=== PATIENT | male | born 1970 | race African-American/Black ===

== ENCOUNTER 2019-10-15 16:20 | Emergency (ER) | payer OTHER, SELFPAY ==
[2019-10-15] VITALS (8 sets, daily range): BP systolic 161–184; BP diastolic 114–124; PULSE 70–97; RESP 16–20; TEMP 36.7; O2SAT 94–98
--- NOTE | 2019-10-15 17:18 | PC.NURSE ---
Wilma calhoun (x2 large) and afrin to bedside per Mitch, [employer] request.
--- NOTE | 2019-10-15 17:47 | PC.NURSE ---
Pt up to bathroom, note the nasal tampon is saturated. States thinks that he can feel blood trickling down the back of his throat
--- NOTE | 2019-10-15 18:01 | ED.EPISTAXIS ---
HPI - Epistaxis General Chief complaint: Epistaxis <FARZANA Aranda BC - Last Filed: 10/15/19 20:11> Stated complaint: nose bleed <FARZANA Aranda BC - Last Filed: 10/15/19 20:11> Time Seen by Provider: 10/15/19 16:30 <FARZANA Aranda BC - Last Filed: 10/15/19 20:11> Source: patient <Naif JakMarco AntonioFARZANA Zaptaa BC - Last Filed: 10/15/19 20:11> Mode of arrival: ambulatory <FRAZANA Aranda BC - Last Filed: 10/15/19 20:11> Limitations: no limitations <FARZANA Aranda BC - Last Filed: 10/15/19 20:11> History of Present Illness HPI Narrative: Patient presents for evaluation of right-sided epistaxis. He indicates he first experienced symptoms early this morning around 0100. He applied pressure and was able to achieve hemostasis. Today, around 1300, he was mowing the lawn and when he came into his home he attempted to clear his throat. He noted small amount of hemoptysis, followed by right sided nosebleed. He has been unable to control the bleeding at home. He is on 81 mg ASA at home but denies any other blood thinners. PMH pertinent for hypertension, hyperlipidemia, GERD. <FARZANA Aranda BC - Last Filed: 10/15/19 20:11> Related Data Home medications: Home Medications Medication Instructions Recorded Confirmed Adult Low Dose Aspirin 10/15/19 amlodipine 10/15/19 atorvastatin 10/15/19 ranitidine HCl 10/15/19 <FARZANA Aranda BC - Last Filed: 10/15/19 20:11> Allergies/adverse reactions: Allergies Allergy/AdvReac Type Severity Reaction Status Date / Time No Known Allergies Allergy Verified 10/15/19 16:38 <FARZANA Aranda BC - Last Filed: 10/15/19 20:11> Review of Systems Review of Systems: Narrative: CONSTITUTIONAL: Denies fever, chills, or sweats. EYES: Denies visual changes, redness, or discharge. ENT: Reports right sided nosebleed. Denies rhinorrhea, congestion, sore throat, or otalgia. CARDIOVASCULAR: Denies chest pain, palpitations, or edema. RESPIRATORY: Denies cough or dyspnea. GASTROINTESTINAL: Denies abdominal pain, nausea, vomiting, or diarrhea. GENITOURINARY: Denies dysuria or hematuria. SKIN: Denies rash or itching. MUSCULOSKELETAL: Denies back pain, joint pain, or myalgia. NEUROLOGIC: Denies headache, numbness, dizziness, or weakness. PSYCHIATRIC: Denies anxiety or depression. <FARZANA Aranda BC - Last Filed: 10/15/19 20:11> PMFSH Past Medical History Medical History: Medical History (Updated 10/15/19 @ 18:38 by Genesis Vasquez MD) GERD (gastroesophageal reflux disease) Hyperlipidemia Hypertension <FARZANA Aranda BC - Last Filed: 10/15/19 20:11> Surgical History Surgical History: Surgical History No pertinent past surgical history <FARZANA Aranda BC - Last Filed: 10/15/19 20:11> Social History Social History: Social History (Updated 10/15/19 @ 18:05 by FARZANA Aranda BC) Alcohol intake: current Substance use: never Living arrangements: with family Gender identity (if verbalized by the patient): Male <FARZANA Aranda BC - Last Filed: 10/15/19 20:11> Exam Narrative: Exam Narrative: GENERAL: Well-appearing, well-nourished, and in no acute distress. HEAD: Normocephalic, atraumatic. EYES: PERRLA and EOMI. ENT: Nares clear, no rhinorrhea. Moderate amount of active sanguinous drainage from right nare. Pt is holding kleenex in right nare in attempts to achieve hemostasis. Mucous membranes moist. Oropharynx without tonsillar hypertrophy exudate or other lesions. Bilateral TMs pearly edwards nonbulging NECK: Supple. No adenopathy or masses. No carotid bruits or JVD CHEST: Clear to auscultation. No respiratory distress. No wheezes rales or rhonchi HEART: Regular rate and rhythm. No murmur heard. Normal peripheral pulses. ABDOMEN: Soft, nontend
--- NOTE | 2019-10-15 18:25 | PC.NURSE ---
Pt continues to trickle out of right nare past packing and continues to clear throat. Dr. Vasquez at bedside discussing plan of care.
[2019-10-15] MEDS: LORAZEPAM INJ 2 MG/ML VIAL 0.5 MG IV PUSH (18:39)
[2019-10-15] MEDS: METOPROLOL TARTRATE INJ 5 MG/5 ML VIAL IV PUSH (18:41)
[2019-10-15 18:44] LABS: Basophils Absolute Auto 0.1 K/mm3 (0.0-0.1); Basophils Percent Auto 0.9 % (0.2-1.2); Eosinophils Absolute Auto 0.2 K/mm3 (0-0.3); Eosinophils Percent Auto 2.1 % (0-4.4); Hematocrit 43.5 % (42.0-52.0); Hemoglobin 13.7 g/dL (14.0-18.0); Immature Granulocyte Absolute 0.02 K/mm3 (0.00-0.031); Immature Granulocyte Percent A 0.2 % (0-0.5); Lymphocytes Absolute Auto 2.65 K/mm3 (0.9-3.2); Lymphocytes Percent Auto 32.9 % (18.3-44.2); Mean Corpuscular HGB Conc 31.5 g/dl (32-36); Mean Corpuscular Hemoglobin 25.7 pg (26-34); Mean Corpuscular Volume 81.6 fl (80-100); Mean Platelet Volume 10.6 fl (7.4-10.4); Monocytes Absolute Auto 0.8 K/mm3 (0.1-0.6); Monocytes Percent Auto 9.6 % (2.6-8.5); Neutrophils Absolute Auto 4.4 K/mm3 (1.3-6.7); Neutrophils Percent Auto 54.3 % (45.5-73.1); Platelet Count Result 262 k/mm3 (150-375); Red Blood Count 5.33 M/mm3 (4.6-6.20); Red Cell Distribution Width 16.5 % (11.5-14.5); White Blood Count 8.1 K/mm3 (4.5-10.0)
[2019-10-15 18:53] LABS: Prothrombin Time 12.8 Seconds (11.1-14.7)
[2019-10-15 18:54] LABS: Partial Thromboplastin Time 30.8 SECONDS (22.3-36.8)
--- NOTE | 2019-10-15 19:16 | PC.NURSE ---
Report to JESICA Yoder, to continue care. Green top being redrawn per request of lab. Made aware of pending results.
[2019-10-15 19:35] LABS: Alanine Aminotransferase 14 U/L (4-50); Albumin Level 4.4 g/dL (3.5-5.1); Alkaline Phosphatase 123 U/L (38-126); Aspartate Amino Transferase 23 U/L (17-59); Bilirubin,Total 0.3 mg/dL (0.2-1.3); Blood Urea Nitrogen 18 mg/dL (9-20); Carbon Dioxide 27 mmol/L (22-30); Chloride 106 mmol/L (98-107); Estimated CRCL calculation 79 ml/min; Estimated Glomerular Filt Rate > 60; Glucose 109 mg/dL (75-110); Potassium 3.7 mmol/L (3.4-5.0); Sodium 140 mmol/L (137-145)
--- NOTE | 2019-10-15 20:12 | ED.GENADULT ---
HPI - General Adult General Chief complaint: Epistaxis Stated complaint: nose bleed Time Seen by Provider: 10/15/19 16:30 Source: patient Mode of arrival: ambulatory Limitations: no limitations History of Present Illness HPI narrative: Patient presents for evaluation of right-sided nosebleed. He indicates his symptoms started at approximately 0100 this morning. He applied pressure to the affected area and achieved hemostasis. This afternoon he had recurrence of his symptoms after mowing the lawn. He indicates symptoms started after clearing his throat and noting a small amount of hemoptysis. He reports taking 81 mg ASA daily. Denies any other blood thinners. Related Data Home Medications Medication Instructions Recorded Confirmed Adult Low Dose Aspirin 10/15/19 amlodipine 10/15/19 atorvastatin 10/15/19 ranitidine HCl 10/15/19 Allergies Allergy/AdvReac Type Severity Reaction Status Date / Time No Known Allergies Allergy Verified 10/15/19 16:38 Review of Systems Review of Systems: Narrative: CONSTITUTIONAL: Denies fever, chills, or sweats. EYES: Denies visual changes, redness, or discharge. ENT: Denies rhinorrhea, congestion, sore throat, or otalgia. Reports right-sided epistaxis CARDIOVASCULAR: Denies chest pain, palpitations, or edema. RESPIRATORY: Denies cough or dyspnea. GASTROINTESTINAL: Denies abdominal pain, nausea, vomiting, or diarrhea. GENITOURINARY: Denies dysuria or hematuria. SKIN: Denies rash or itching. MUSCULOSKELETAL: Denies back pain, joint pain, or myalgia. NEUROLOGIC: Denies headache, numbness, dizziness, or weakness. PSYCHIATRIC: Denies anxiety or depression. [facility] Past Medical History Medical History (Updated 10/15/19 @ 18:38 by Genesis Vasquez MD) GERD (gastroesophageal reflux disease) Hyperlipidemia Hypertension Surgical History Surgical History No pertinent past surgical history Social History Social History (Updated 10/15/19 @ 18:05 by FARZANA Aranda, ) Alcohol intake: current Substance use: never Living arrangements: with family Gender identity (if verbalized by the patient): Male Exam Narrative: Exam Narrative: GENERAL: Well-appearing, well-nourished, and in no acute distress. HEAD: Normocephalic, atraumatic. EYES: PERRLA and EOMI. ENT: Nares clear. Right-sided epistaxis-pt is holding kleenex in right nare in attempt to achieve hemostasis. Mucous membranes moist. Oropharynx without tonsillar hypertrophy exudate or other lesions. Bilateral TMs pearly edwards nonbulging NECK: Supple. No adenopathy or masses. No carotid bruits or JVD CHEST: Clear to auscultation. No respiratory distress. No wheezes rales or rhonchi HEART: Regular rate and rhythm. No murmur heard. Normal peripheral pulses. ABDOMEN: Soft, nontender, nondistended, normal active bowel sounds. EXTREMITIES: Normal range of motion. No edema. SKIN: Warm, dry, no rash. NEURO: No focal deficits. Alert and oriented x3. PSYCH: Normal mood and affect. Course Course Emergency Course: 7.5 Rhino Rocket was placed. Hemostasis was achieved. Patient states he feels well enough to go home. He was given 5 mg of metoprolol due to elevated blood pressure. He will be discharged with Ativan per pt request Vital Signs Vital signs: Vital Signs Temperature 36.7 C 10/15/19 16:22 Pulse Rate 97 10/15/19 16:22 Respiratory Rate 18 10/15/19 16:22 Blood Pressure 184/124 H 10/15/19 16:22 Pulse Oximetry 97 10/15/19 16:22 Temperature 36.7 C 10/15/19 16:22 Pulse Rate 71 10/15/19 19:24 Respiratory Rate 20 10/15/19 19:24 Blood Pressure 161/117 H 10/15/19 19:24 Pulse Oximetry 95 10/15/19 19:24 Procedures Epistaxis Control right: Device Inserted: nasal tampon Medical Decision Making MDM Narrative Medical decision making narrative: Hemostasis was achieved. Vital Signs Vital Signs: Vital Signs Tem
--- NOTE | 2019-10-15 20:17 | PC.NURSE ---
PT BLOOD PRESSURE 172/120. 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 VRBO CLONIDINE 0.1 MG PO GIVEN THEN OK TO DISCHARGE
[2019-10-15] MEDS: CLONIDINE HCL 0.1 MG TABLET PO (20:23)
== END 2019-10-15 21:15 | disposition home or self-care (01) ==
PROVIDERS: Emergency Provider Nurse Practitioner
DX: R04.0 Epistaxis (principal); I10 Essential (primary) hypertension; E78.5 Hyperlipidemia, unspecified; K21.9 Gastro-esophageal reflux disease without esophagitis; Z79.82 Long term (current) use of aspirin
CPT/HCPCS: 30901; 36415; 80053; 85025; 85610; 85730; 96374; 96375; 99284; A9270; J2060